=== PATIENT | female | born 1950 | race Caucasian/White ===

== ENCOUNTER 2022-12-25 09:58 | Emergency (ER) | payer MEDICARE, OTHER, SELFPAY ==
--- NOTE | 2022-12-25 10:09 | ED.FEMALEGU ---
HPI - Female Genitourinary General Chief complaint: Urogenital-Female Stated complaint: Urogenital Female / Back Pain Time Seen by Provider: 12/25/22 10:05 Source: patient Mode of arrival: ambulatory Limitations: no limitations History of Present Illness HPI Narrative: Velia is a 72-year-old female patient presenting to the clinic today with complaints of frequency, urgency, and low urine output. She reports she was recently treated for UTI by her PCP in [place] with Macrobid. States she had traveled to [place] and started having symptoms again and contacted her PCP and they sent her in a prescription for Bactrim but requested she come in to be evaluated prior to starting the Bactrim so she can get a urine culture done. She is reporting some flank pain on the right side as well as the urinary symptoms. Related Data Home Medications Medication Instructions Recorded Confirmed allopurinol 300 mg tablet mg 12/25/22 calcium citrate 250 mg tablet PO 12/25/22 calcium-vitamin D3 5 mcg (200 unit) tablet cholecalciferol (vitamin D3) 25 25 mcg PO DAILY 12/25/22 12/25/22 mcg (1,000 unit) capsule (Vitamin D3) levothyroxine 75 mcg tablet mcg 12/25/22 linaclotide 145 mcg capsule mcg 12/25/22 (Linzess) liothyronine 5 mcg tablet mcg 12/25/22 magnesium glycinate 100 mg tablet 100 mg PO DAILY 12/25/22 12/25/22 metoprolol succinate 25 mg mg PO 12/25/22 tablet,extended release 24 hr sodium,potassium,mag sulfates 17.5 12/25/22 12/25/22 gram-3.13 gram-1.6 gram oral soln vitamin B complex-vit B12 12/25/22 Allergies Allergy/AdvReac Type Severity Reaction Status Date / Time Penicillins Allergy Mild Verified 04/11/19 16:24 Iodinated Contrast Media Allergy Unknown Verified 04/11/19 16:24 iodine Allergy Unknown Verified 04/11/19 16:24 propoxyphene AdvReac Unknown NAUSEA Unverified 04/11/19 16:24 Contrast Media Allergy Mild RASH Uncoded 04/11/19 16:24 Shrimp Allergy Unknown SEAFOOD Uncoded 04/11/19 16:24 CAUSES RASH Review of Systems Review of Systems: Pertinent positives per HPI. Patient denies any fever, chills, rash, headache, visual changes, dizziness, cough, runny nose, sore throat, shortness of breath, chest pain, palpitations, nausea, vomiting, diarrhea, constipation, abdominal pain. PMFSH Family History Family History Father Family history of chronic obstructive pulmonary disease Malignant neoplasm of prostate Patient's father is Mother Family history of thyroid disease Hypertension Mother Family history of thyroid disease Family history of mental disorder Depression Family history of chronic obstructive pulmonary disease Other Diabetes mellitus Family history of allergic disorder Social History Social History Smoking status: Never smoker Smoking end date: 04/04/01 Alcohol intake: current Comments At the time of my signature, I reviewed and agree with the nursing past medical, surgical, social, and family history. There is no relevant family history pertinent to the patient complaint. Exam Narrative: General: Well-developed, well nourished, in no apparent distress. Head: Normocephalic, atraumatic. Cardio: Regular rate and rhythm, s1 and s2 normal, no murmur appreciated. Resp: Clear to auscultation bilaterally, no rhonchi, rales, wheezing or rubs. Abdomen: Soft, pliable, bowel sounds present in all quadrants, non-tender to palpation, no organomegly, no CVAT tenderness. Musculoskeletal: No deformity, non-tender to palpation, grossly normal range of motion, muscle strength strong and equal, peripheral pulse strong, no edema, no cyanosis, normal gait and station Course Course Emergency Course: Portions of this record may have been created with voice recognition software. Level of Care: Express Care Visit Vital Signs Vital signs:
[2022-12-25 10:20] VITALS: BP 136/89; PULSE 78; RESP 16; TEMP 37.2; O2SAT 97
[2022-12-25 10:24] VITALS: BP 136/89; PULSE 78; RESP 16; TEMP 37.2; O2SAT 97
== END 2022-12-25 10:40 | disposition home or self-care (01) ==
PROVIDERS: Emergency Provider Nurse Practitioner Family
DX: R10.9 Unspecified abdominal pain (principal); R39.15 Urgency of urination; R35.0 Frequency of micturition; R34 Anuria and oliguria; I10 Essential (primary) hypertension; E89.0 Postprocedural hypothyroidism; Z85.820 Personal history of malignant melanoma of skin; Z15.01 Genetic susceptibility to malignant neoplasm of breast; Z90.13 Acquired absence of bilateral breasts and nipples
CPT/HCPCS: 81003; 87077; 87086; 87088; 87186; 99203; G0463